=== PATIENT | male | born 1995 | race Native Hawaiian/Other Pacific Islander ===

== ENCOUNTER 2023-05-29 17:29 | Emergency (ER) | payer OTHER ==
[~2023-05-29] VITALS: Ht 182.9 cm; Wt 193.2 kg
[2023-05-29] MEDS ORDERED: FUROSEMIDE 40 MG TABLET ONE (18:29)
[2023-05-29] MEDS ORDERED: FUROSEMIDE 40 MG TABLET PO ONE (18:30)
[2023-05-29] MEDS ORDERED: APIXABAN 5 MG TABLET PO SCH (19:00)
[2023-05-29] MEDS ORDERED: APIXABAN 5 MG TABLET ONE (19:30)
[2023-05-29] MEDS ORDERED: APIX5TAB4 PO (19:32)
[2023-05-29] MEDS ORDERED: LISI1TAB29 PO (19:32)
[2023-05-29 20:06] VITALS: BP 184/86; TEMP 98; O2SAT 100
== END 2023-05-29 20:06 | disposition home or self-care (01) ==
LOC: ER 17:34
DX: I82.432 Acute embolism and thrombosis of left popliteal vein (principal); I10 Essential (primary) hypertension; I87.8 Other specified disorders of veins; L30.9 Dermatitis, unspecified; R60.0 Localized edema; E66.9 Obesity, unspecified; Z68.43 Body mass index [BMI] 50.0-59.9, adult
CPT/HCPCS: 93971-TC